=== PATIENT | female | born 1960 | race Two or more races ===

== ENCOUNTER 2018-02-22 14:53 | Inpatient (IN) | payer BC, OTHER ==
[~2018-02-22] VITALS: Ht 157.5 cm; Wt 59.2 kg
[2018-02-22] MEDS ORDERED: MORPHINE SULFATE 4 MG/ML SYR/VIAL IV ONE ×2 (16:00→18:45)
[2018-02-22] MEDS ORDERED: ONDANSETRON HCL 4 MG/2 ML VIAL IV ONE (16:00)
[2018-02-22 16:36] LABS: Anion Gap 10 (5-15); Carbon Dioxide 26 mmol/L (21-32); Chloride 94 mmol/L (98-107); GFR African American 154 mL/min; GFR Non-African American 127 mL/min; Glucose 397 mg/dL (74-106); Potassium 3.6 mmol/L (3.5-5.1); Sodium 130 mmol/L (136-145)
[2018-02-22 16:37] LABS: Magnesium 2.1 mg/dL (1.6-2.6)
[2018-02-22 17:19] LABS: Urine Bacteria NONE SEEN /hpf (None Seen); Urine Blood Negative /uL (Negative); Urine WBC 5 /hpf (0 - 5)
[2018-02-22 17:33] LABS: White Blood Cell 13.8 10^3/uL (4.4-10.8)
[2018-02-22 17:34] LABS: Lymphocytes % (auto) 12.6 % (10.0-50.0); Monocytes % (auto) 3.6 % (0.0-12.0); Neutrophils % (auto) 82.2 % (37.0-80.0)
[2018-02-22 17:35] LABS: Basophils # (auto) 0.1 uL; Basophils % (auto) 0.8 % (0.0-2.0); Eosinophils # (auto) 0.1 uL; Eosinophils % (auto) 0.8 % (0.0-7.0); Hematocrit 43.4 % (36.0-46.0); Hemoglobin 14.7 g/dL (12.2-16.2); Lymphocytes # (auto) 1.7 uL; Mean Corpuscular Hemoglobin 31.3 pg (28.0-32.0); Mean Corpuscular Hgb Conc. 33.9 g/dL (32.0-36.0); Mean Corpuscular Volume 92.2 fL (80.0-100.0); Monocytes # (auto) 0.5 uL; Neutrophils # (auto) 11.2 uL; Red Blood Cells 4.77 10^6/uL (4.0-5.20)
[2018-02-22 17:36] LABS: Platelet Count (auto) 334 10^3/uL (140-450); Red Cell Distribution Width 13.8 % (11.8-14.3)
[2018-02-22 19:08] LABS: Alkaline Phosphatase 120 U/L (45-117)
[2018-02-22 19:09] LABS: Alanine Aminotransferase 46 U/L (13-56)
[2018-02-22 19:10] LABS: Bilirubin, Total 2.2 mg/dL (0.2-1.0); Calcium 7.6 mg/dL (8.5-10.1)
[2018-02-22 19:11] LABS: Amylase 591 U/L (25-115); BUN/Creatinine Ratio 18.9; Blood Urea Nitrogen 10 mg/dL (7-18); Lipase 7391 U/L (73-393); Total Protein 7.9 g/dL (6.4-8.2)
[2018-02-22] MEDS ORDERED: SODIUM CHLORIDE 0.9% 1,000 ML IV ONE (19:30)
[2018-02-22] MEDS ORDERED: DEXTROSE (50%) 50ML SYRG IV PRN (19:30)
[2018-02-22] MEDS ORDERED: TEMAZEPAM 15 MG CAP PO PRN (19:45)
[2018-02-22] MEDS ORDERED: MORPHINE SULFATE 4 MG/ML SYR/VIAL IV PRN ×2 (19:45)
[2018-02-22] MEDS ORDERED: ACETAMINOPHEN 325 MG TAB PO PRN (19:45)
[2018-02-22] MEDS ORDERED: ONDANSETRON HCL 4 MG/2 ML VIAL IV PRN (19:45)
[2018-02-22] MEDS ORDERED: HYDROcodone-ACET 5/325MG TAB PO PRN (19:45)
[2018-02-22] MEDS ORDERED: cefTRIAXone 1GM/50ML D5W 50 ML IV ONE (19:45)
[2018-02-22] MEDS ORDERED: NITROGLYCERIN 0.4 MG SL TAB SL PRN (19:45)
[2018-02-22] MEDS ORDERED: METF-929 PO (19:49)
[2018-02-22] MEDS ORDERED: FENO35TA2 PO (19:52)
[2018-02-22] MEDS ORDERED: ATOR40TA52 PO (19:52)
[2018-02-22] MEDS ORDERED: INSU1INJ13 SC (19:52)
[2018-02-22] MEDS ORDERED: CANA300T OR (19:52)
[2018-02-22] MEDS ORDERED: INSLISPI SC (19:52)
[2018-02-22] MEDS: SODIUM CHLORIDE 0.9% 1,000 ML IV SCH (21:06)
[2018-02-22] MEDS: metroNIDAZOLE 500MG/100ML 100 ML IV SCH (21:08)
[2018-02-22] MEDS: FAMOTIDINE 20 MG TAB PO SCH (21:08)
[2018-02-22] MEDS: ATORVASTATIN 20 MG TAB PO SCH (21:09)
[2018-02-22] MEDS: ACCU-CHEK COMFORT CURVE STRIP VI SCH (21:15)
[2018-02-22] MEDS: InsuLIN REG 1unit/0.01ml Soln (100units/ml) SC SCH (21:19)
[2018-02-22] MEDS ORDERED: INSULIN LISPRO (HUMAN) 100 UNITS/ML ML SC SCH (22:00)
[2018-02-22 22:10] VITALS: BP 155/86
[2018-02-22 22:20] VITALS: BP 155/86
[2018-02-23 05:20] VITALS: BP 121/62
[2018-02-23 05:40] LABS: Potassium 3.6 mmol/L (3.5-5.1)
[2018-02-23 05:50] LABS: Bilirubin, Total 1.5 mg/dL (0.2-1.0)
[2018-02-23 05:51] LABS: Lipase 3425 U/L (73-393)
[2018-02-23] MEDS: metroNIDAZOLE 500MG/100ML 100 ML IV SCH ×3 (05:51→22:16)
[2018-02-23 06:28] LABS: Basophils # (auto) 0.1 uL; Basophils % (auto) 1.2 % (0.0-2.0); Eosinophils # (auto) 0.1 uL; Eosinophils % (auto) 1.2 % (0.0-7.0); Hematocrit 39.4 % (36.0-46.0); Hemoglobin 13.3 g/dL (12.2-16.2); Lymphocytes % (auto) 21.8 % (10.0-50.0); Mean Corpuscular Hemoglobin 31.4 pg (28.0-32.0); Mean Corpuscular Hgb Conc. 33.9 g/dL (32.0-36.0); Mean Corpuscular Volume 92.6 fL (80.0-100.0); Monocytes # (auto) 0.4 uL; Monocytes % (auto) 4.1 % (0.0-12.0); Neutrophils # (auto) 6.5 uL; Neutrophils % (auto) 71.7 % (37.0-80.0); Nucleated Red Blood Cells % 1.6 %; Red Blood Cells 4.25 10^6/uL (4.0-5.20); Red Cell Distribution Width 14.2 % (11.8-14.3)
[2018-02-23 06:29] LABS: Platelet Count (auto) 300 10^3/uL (140-450)
[2018-02-23] MEDS: ACCU-CHEK COMFORT CURVE STRIP VI SCH ×4 (06:42→22:29)
[2018-02-23] MEDS: InsuLIN REG 1unit/0.01ml Soln (100units/ml) SC SCH ×4 (06:43→22:32)
[2018-02-23] MEDS: SODIUM CHLORIDE 0.9% 1,000 ML IV SCH ×3 (06:50→21:46)
[2018-02-23 07:05] LABS: BUN/Creatinine Ratio 28.1
[2018-02-23 07:06] LABS: Albumin 2.7 g/dL (3.4-5.0); Total Protein 6.8 g/dL (6.4-8.2)
[2018-02-23 07:08] LABS: Amylase 400 U/L (25-115)
[2018-02-23 09:00] VITALS: BP 100/59
[2018-02-23] MEDS: cefTRIAXone 1GM/50ML D5W 50 ML IV SCH (09:30)
[2018-02-23] MEDS: MULTIPLE VITAMIN TAB PO SCH (09:30)
[2018-02-23] MEDS: FAMOTIDINE 20 MG TAB PO SCH ×2 (09:30→22:16)
[2018-02-23] MEDS ORDERED: INSULIN LISPRO (HUMAN) 100 UNITS/ML ML SC SCH (11:30)
[2018-02-23] MEDS: INSULIN LISPRO (HUMAN) 100 UNITS/ML ML SC SCH ×3 (11:30→21:45)
[2018-02-23] MEDS: Glucerna Carbsteady SHAKE Vanilla 8oz PO SCH ×2 (12:00→18:24)
[2018-02-23 13:00] VITALS: BP 103/61
[2018-02-23 17:00] VITALS: BP 106/56
[2018-02-23 22:00] VITALS: BP 105/56
[2018-02-23] MEDS: ATORVASTATIN 20 MG TAB PO SCH (22:16)
[2018-02-24 05:00] VITALS: BP 101/58
[2018-02-24] MEDS: SODIUM CHLORIDE 0.9% 1,000 ML IV SCH ×3 (05:04→21:46)
[2018-02-24 05:13] LABS: Basophils # (auto) 0 uL; Basophils % (auto) 0.7 % (0.0-2.0); Eosinophils # (auto) 0.1 uL; Eosinophils % (auto) 1.6 % (0.0-7.0); Hematocrit 37.4 % (36.0-46.0); Hemoglobin 13.5 g/dL (12.2-16.2); Lymphocytes # (auto) 1.8 uL; Lymphocytes % (auto) 25.1 % (10.0-50.0); Mean Corpuscular Hemoglobin 33.2 pg (28.0-32.0); Mean Corpuscular Hgb Conc. 36.1 g/dL (32.0-36.0); Monocytes # (auto) 0.3 uL; Monocytes % (auto) 4.2 % (0.0-12.0); Neutrophils % (auto) 68.4 % (37.0-80.0); Nucleated Red Blood Cells % 0.2 %; Platelet Count (auto) 253 10^3/uL (140-450); Red Blood Cells 4.06 10^6/uL (4.0-5.20); Red Cell Distribution Width 14.2 % (11.8-14.3); White Blood Cell 7.3 10^3/uL (4.4-10.8)
[2018-02-24 05:24] LABS: Calcium 6.8 mg/dL (8.5-10.1); Potassium 3.8 mmol/L (3.5-5.1)
[2018-02-24 05:32] LABS: BUN/Creatinine Ratio 12.5
[2018-02-24 05:35] LABS: Amylase 1214 U/L (25-115); Lipase 13084 U/L (73-393)
[2018-02-24] MEDS: metroNIDAZOLE 500MG/100ML 100 ML IV SCH ×3 (06:17→21:46)
[2018-02-24] MEDS: ACCU-CHEK COMFORT CURVE STRIP VI SCH ×4 (06:19→21:46)
[2018-02-24] MEDS: InsuLIN REG 1unit/0.01ml Soln (100units/ml) SC SCH ×4 (06:19→22:03)
[2018-02-24] MEDS: INSULIN LISPRO (HUMAN) 100 UNITS/ML ML SC SCH ×2 (06:23→11:30)
[2018-02-24] MEDS: Glucerna Carbsteady SHAKE Vanilla 8oz PO SCH ×3 (08:00→18:00)
[2018-02-24 09:30] VITALS: BP 104/60
[2018-02-24] MEDS: cefTRIAXone 1GM/50ML D5W 50 ML IV SCH (09:43)
[2018-02-24] MEDS: FAMOTIDINE 20 MG TAB PO SCH ×2 (09:44→21:39)
[2018-02-24] MEDS: MULTIPLE VITAMIN TAB PO SCH (09:45)
[2018-02-24 13:38] VITALS: BP 102/67
[2018-02-24 17:02] VITALS: BP 127/81
[2018-02-24] MEDS: ATORVASTATIN 20 MG TAB PO SCH (21:46)
[2018-02-24 21:56] VITALS: BP 127/77
[2018-02-25 04:39] VITALS: BP 120/71
[2018-02-25] MEDS: metroNIDAZOLE 500MG/100ML 100 ML IV SCH ×3 (05:34→21:38)
[2018-02-25] MEDS: SODIUM CHLORIDE 0.9% 1,000 ML IV SCH ×3 (05:34→21:39)
[2018-02-25 06:29] LABS: Amylase 849 U/L (25-115); Lipase 6039 U/L (73-393)
[2018-02-25] MEDS: ACCU-CHEK COMFORT CURVE STRIP VI SCH ×4 (06:58→21:38)
[2018-02-25] MEDS: InsuLIN REG 1unit/0.01ml Soln (100units/ml) SC SCH ×4 (06:59→21:51)
[2018-02-25 08:00] VITALS: BP 114/70
[2018-02-25] MEDS: Glucerna Carbsteady SHAKE Vanilla 8oz PO SCH ×3 (08:00→16:41)
[2018-02-25] MEDS: FAMOTIDINE 20 MG TAB PO SCH ×2 (09:13→21:38)
[2018-02-25] MEDS: cefTRIAXone 1GM/50ML D5W 50 ML IV SCH (09:13)
[2018-02-25] MEDS: MULTIPLE VITAMIN TAB PO SCH (09:14)
[2018-02-25 12:00] VITALS: BP 127/69
[2018-02-25 16:00] VITALS: BP 140/70
[2018-02-25] MEDS: ATORVASTATIN 20 MG TAB PO SCH (21:38)
[2018-02-25 21:49] VITALS: BP 147/79
[2018-02-26 04:44] VITALS: BP 122/68
[2018-02-26] MEDS: metroNIDAZOLE 500MG/100ML 100 ML IV SCH ×2 (06:10→14:00)
[2018-02-26] MEDS: ACCU-CHEK COMFORT CURVE STRIP VI SCH ×2 (06:11→11:36)
[2018-02-26] MEDS: SODIUM CHLORIDE 0.9% 1,000 ML IV SCH (06:11)
[2018-02-26 06:15] LABS: Amylase 192 U/L (25-115); Lipase 1300 U/L (73-393)
[2018-02-26] MEDS: InsuLIN REG 1unit/0.01ml Soln (100units/ml) SC SCH ×2 (06:20→11:30)
[2018-02-26] MEDS: Glucerna Carbsteady SHAKE Vanilla 8oz PO SCH ×2 (08:00→12:00)
[2018-02-26 08:30] VITALS: BP 124/69
[2018-02-26 09:01] VITALS: BP 118/65
[2018-02-26] MEDS: FAMOTIDINE 20 MG TAB PO SCH (09:38)
[2018-02-26] MEDS: MULTIPLE VITAMIN TAB PO SCH (09:38)
[2018-02-26] MEDS: cefTRIAXone 1GM/50ML D5W 50 ML IV SCH (09:38)
[2018-02-26 13:05] VITALS: BP 127/76
[2018-02-26 13:19] VITALS: BP 127/76
== END 2018-02-26 15:00 | disposition home or self-care (01) | DRG 439 ==
LOC: ER 14:56 → TELE 14:57 → TELE-WESTW 22:10
PROVIDERS: ADMIT Internal Medicine; ATTEND Family Medicine
DX: K85.90 Acute pancreatitis without necrosis or infection, unspecified (principal); E87.1 Hypo-osmolality and hyponatremia; E44.0 Moderate protein-calorie malnutrition; E86.0 Dehydration; E78.5 Hyperlipidemia, unspecified; E78.00 Pure hypercholesterolemia, unspecified; K76.0 Fatty (change of) liver, not elsewhere classified; E11.65 Type 2 diabetes mellitus with hyperglycemia; Z68.23 Body mass index [BMI] 23.0-23.9, adult; Z83.3 Family history of diabetes mellitus; Z90.49 Acquired absence of other specified parts of digestive tract
CPT/HCPCS: 36415; 74176; 80048; 80053; 81001; 82150; 82962; 83036; 83690; 83735; 84484; 85025; 87040; 87045; 87086; 87493; 87899; 93005; 94761; 96361; 96365; 96375; J0696; J1815; J2405; J3490

== ENCOUNTER 2018-10-23 22:02 | Inpatient (IN) | payer BC ==
[~2018-10-23] VITALS: Ht 157.5 cm; Wt 61.4 kg
[~2018-10-23 22:02] MED LIST: ATOR40TA52 PO; CANA300T OR; FENO35TA2 PO; INSLISPI SC; INSU1INJ13 SC; METF-929 PO
[2018-10-23 23:50] LABS: Basophils # (auto) 0.1 uL; Lymphocytes # (auto) 2.4 uL
[2018-10-23 23:52] LABS: Basophils % (auto) 0.6 % (0.0-2.0); Eosinophils # (auto) 0.1 uL; Eosinophils % (auto) 1.1 % (0.0-7.0); Lymphocytes % (auto) 17.4 % (10.0-50.0); Monocytes # (auto) 0.5 uL; Monocytes % (auto) 3.8 % (0.0-12.0); Neutrophils # (auto) 10.6 uL; Neutrophils % (auto) 77.1 % (37.0-80.0); Nucleated Red Blood Cells % 0.2 %; Platelet Count (auto) 368 10^3/uL (140-450); White Blood Cell 13.8 10^3/uL (4.4-10.8)
[2018-10-24] LABS: Potassium 3.5 mmol/L (3.5-5.1)
[2018-10-24 00:09] LABS: Hematocrit 46.9 % (36.0-46.0); Hemoglobin 15.9 g/dL (12.2-16.2); Mean Corpuscular Hgb Conc. 33.9 g/dL (32.0-36.0); Red Blood Cells 5.08 10^6/uL (4.0-5.20)
[2018-10-24 00:10] LABS: Mean Corpuscular Hemoglobin 31.3 pg (28.0-32.0); Mean Corpuscular Volume 92.3 fL (80.0-100.0); Red Cell Distribution Width 13.3 % (11.8-14.3)
[2018-10-24 01:09] LABS: Albumin 4.3 g/dL (3.4-5.0); BUN/Creatinine Ratio 19.2; Calcium 8.5 mg/dL (8.5-10.1)
[2018-10-24 01:14] LABS: Bilirubin, Total 1.1 mg/dL (0.2-1.0); Total Protein 7.2 g/dL (6.4-8.2)
[2018-10-24] MEDS ORDERED: ONDANSETRON HCL 4 MG/2 ML VIAL IV ONE (04:00)
[2018-10-24] MEDS ORDERED: MORPHINE SULFATE 4 MG/ML SYR/VIAL IV ONE (04:45)
[2018-10-24] MEDS ORDERED: SODIUM CHLORIDE 0.9% 1,000 ML IV ONE ×2 (04:45→18:00)
[2018-10-24 05:46] LABS: Urine Bacteria FEW /hpf (None Seen); Urine Blood Negative /uL (Negative); Urine Specific Gravity 1.031 (1.001-1.035); Urine WBC 3 /hpf (0 - 5)
[2018-10-24] MEDS ORDERED: SODIUM CHLORIDE 0.9% 500 ML IVB ONE (06:39)
[2018-10-24] MEDS ORDERED: DEXTROSE (50%) 50ML SYRG IV PRN ×3 (07:30→17:45)
[2018-10-24] MEDS ORDERED: SODIUM CHLORIDE 0.9% 1,000 ML IV SCH ×2 (07:30→11:15)
[2018-10-24] MEDS: ONDANSETRON HCL 4 MG/2 ML VIAL IV PRN (07:58)
[2018-10-24] MEDS: MORPHINE SULFATE 4 MG/ML SYR/VIAL IV PRN ×3 (07:58→22:10)
[2018-10-24 08:31] LABS: Potassium 3.8 mmol/L (3.5-5.1)
[2018-10-24 09:53] LABS: Calcium 5.5 mg/dL (8.5-10.1)
[2018-10-24] MEDS: FAMOTIDINE (10MG/ML) 2ML VL IV SCH ×2 (10:09→22:04)
[2018-10-24] MEDS ORDERED: LACTATED RINGER'S 1,000 ML IV ONE (11:30)
[2018-10-24] MEDS ORDERED: CALCIUM GLUC 4.65meq/50ml D5AE 50 ML IV ONE ×2 (11:30→18:00)
[2018-10-24] MEDS ORDERED: ACCU-CHEK COMFORT CURVE STRIP VI SCH ×2 (12:00→17:00)
[2018-10-24] MEDS ORDERED: InsuLIN REG 1unit/0.01ml Soln (100units/ml) SC SCH ×2 (12:00→17:00)
[2018-10-24 13:36] LABS: Protein, Urine 202.3 mg/dL (0.0-11.9)
[2018-10-24 15:30] VITALS: BP 123/75
[2018-10-24 16:28] VITALS: BP 123/75
[2018-10-24 17:11] LABS: Potassium 5.1 mmol/L (3.5-5.1)
[2018-10-24 17:37] LABS: BUN/Creatinine Ratio 9.6
[2018-10-24 17:40] LABS: Calcium 5.8 mg/dL (8.5-10.1)
[2018-10-24 17:41] LABS: Albumin 2.6 g/dL (3.4-5.0); Bilirubin, Total 1.4 mg/dL (0.2-1.0); Total Protein 7.5 g/dL (6.4-8.2)
[2018-10-24] MEDS: LACTATED RINGER'S 1,000 ML IV SCH ×2 (17:45→20:16)
--- NOTE | 2018-10-24 17:47 | NUR ---
Called Dr. Nicole regarding critical calcium level of 5.8 and blood glucose (serum) 454. Will wait for return call.
--- NOTE | 2018-10-24 17:56 | NUR ---
Orders Received from Dr. Nicole. Repeat Calcium 4.65 mEq IVPB and give 1 L NS bolus IV per Dr. Nicole
[2018-10-24] MEDS: InsuLIN REG 1unit/0.01ml Soln (100units/ml) SC SCH ×2 (18:06→23:53)
[2018-10-24] MEDS: ACCU-CHEK COMFORT CURVE STRIP VI SCH ×2 (18:06→23:53)
[2018-10-24 22:00] VITALS: BP 110/65
[2018-10-24] MEDS ORDERED: INSULIN LANTUS (GLARGINE) 1 /0.01ml (100units/ml) SC ONE ×2 (22:00)
[2018-10-25] MEDS: MORPHINE SULFATE 4 MG/ML SYR/VIAL IV PRN ×4 (02:08→20:51)
[2018-10-25] MEDS: LACTATED RINGER'S 1,000 ML IV SCH ×3 (03:41→20:17)
[2018-10-25 05:30] VITALS: BP 113/60
[2018-10-25] MEDS: ACCU-CHEK COMFORT CURVE STRIP VI SCH ×4 (06:08→23:12)
[2018-10-25] MEDS: InsuLIN REG 1unit/0.01ml Soln (100units/ml) SC SCH ×4 (06:12→23:12)
--- NOTE | 2018-10-25 07:35 | NUR ---
RECEIVED REPORT AND ASSUME CARE OF PT. A/OX4. DENIED S/S ACUTE DISTRESS. UPDATE PT WITH POC. BED AT LOWEST POSITION. CALL LIGHT AND BELONGINGS WITHIN REACH. WILL CONT TO MONITOR.
[2018-10-25 08:40] LABS: Basophils # (auto) 0 uL; Basophils % (auto) 0.7 % (0.0-2.0); Eosinophils # (auto) 0.2 uL; Eosinophils % (auto) 2.6 % (0.0-7.0); Hematocrit 43.4 % (36.0-46.0); Hemoglobin 15.4 g/dL (12.2-16.2); Lymphocytes # (auto) 1.6 uL; Lymphocytes % (auto) 27.4 % (10.0-50.0); Mean Corpuscular Hemoglobin 32.5 pg (28.0-32.0); Mean Corpuscular Hgb Conc. 35.4 g/dL (32.0-36.0); Mean Corpuscular Volume 91.7 fL (80.0-100.0); Monocytes # (auto) 0.2 uL; Monocytes % (auto) 3.8 % (0.0-12.0); Neutrophils # (auto) 3.9 uL; Neutrophils % (auto) 65.5 % (37.0-80.0); Nucleated Red Blood Cells % 0.1 %; Platelet Count (auto) 322 10^3/uL (140-450); Red Blood Cells 4.73 10^6/uL (4.0-5.20); Red Cell Distribution Width 13.7 % (11.8-14.3)
[2018-10-25 09:19] LABS: Calcium 6.1 mg/dL (8.5-10.1); Potassium 4.4 mmol/L (3.5-5.1)
[2018-10-25 09:28] LABS: Bilirubin, Total 1.5 mg/dL (0.2-1.0); Phosphorus 1.1 mg/dL (2.5-4.90)
[2018-10-25 09:49] LABS: BUN/Creatinine Ratio 15.8; Total Protein 6.5 g/dL (6.4-8.2)
[2018-10-25 09:50] LABS: Albumin 2.1 g/dL (3.4-5.0)
[2018-10-25] MEDS ORDERED: POTASSIUM PHOSPHATE 26.4 MEQ in SODIUM CHL 0.9% 100 ML IV ONE (10:00)
[2018-10-25] MEDS ORDERED: SODIUM PHOSPHATES 40 MEQ in D5W 5% 250 ML IV ONE (10:15)
[2018-10-25 10:26] VITALS: BP 107/65
[2018-10-25] MEDS: GEMFIBROZIL 600 MG TAB PO SCH ×2 (10:28→20:46)
[2018-10-25] MEDS: FAMOTIDINE (10MG/ML) 2ML VL IV SCH ×2 (10:28→20:46)
[2018-10-25] MEDS: ONDANSETRON HCL 4 MG/2 ML VIAL IV PRN (10:30)
[2018-10-25 12:00] VITALS: BP 101/62
[2018-10-25 17:00] VITALS: BP 109/61
--- NOTE | 2018-10-25 19:28 | NUR ---
PT RESTING IN BED. NO S/S ACUTE DISTRESS NOTED. ENDORSED CARE TO NIGHT NURSE.
[2018-10-25 22:00] VITALS: BP 120/60
[2018-10-25] MEDS: INSULIN LANTUS (GLARGINE) 1 /0.01ml (100units/ml) SC SCH (23:11)
[2018-10-26] MEDS: LACTATED RINGER'S 1,000 ML IV SCH (03:30)
[2018-10-26] MEDS: MORPHINE SULFATE 4 MG/ML SYR/VIAL IV PRN ×3 (04:47→21:30)
[2018-10-26 05:00] VITALS: BP 117/66
[2018-10-26] MEDS: ACCU-CHEK COMFORT CURVE STRIP VI SCH ×3 (05:00→18:18)
[2018-10-26] MEDS: InsuLIN REG 1unit/0.01ml Soln (100units/ml) SC SCH ×3 (05:01→18:18)
[2018-10-26 07:16] LABS: Potassium 3.2 mmol/L (3.5-5.1)
[2018-10-26 07:24] LABS: BUN/Creatinine Ratio 14.1; Bilirubin, Total 1.5 mg/dL (0.2-1.0); Magnesium 2.1 mg/dL (1.6-2.6); Phosphorus 1.1 mg/dL (2.5-4.90); Total Protein 6.1 g/dL (6.4-8.2)
--- NOTE | 2018-10-26 07:30 | NUR ---
OPENING SHIFT NOTE: Received report from NOC RN, Janie. Assumed care of patient. Patient resting in bed, states pain is a tolerable level at this time. Bed in lowest position, rails x2 up and call light within reach. Updated on plan of care. Will continue to monitor.
[2018-10-26 08:06] LABS: Immunoglobulin G, Serum 847 mg/dL (700-1600)
[2018-10-26 09:00] VITALS: BP 100/54
[2018-10-26] MEDS: FAMOTIDINE (10MG/ML) 2ML VL IV SCH (09:17)
[2018-10-26] MEDS: GEMFIBROZIL 600 MG TAB PO SCH ×2 (09:18→21:29)
--- NOTE | 2018-10-26 10:40 | NUR ---
MD: Dr Alexander to see patient. Orders received.
[2018-10-26] MEDS ORDERED: POTASSIUM EFFERVESENT TAB 25 MEQ PO ONE (11:00)
[2018-10-26] MEDS ORDERED: POTASSIUM PHOSPHATE 44 MEQ in D5W 5% 250 ML IV ONE (11:00)
[2018-10-26] MEDS ORDERED: ERGOCALCIFEROL 50,000 UNIT(1.25MG) CAP PO SCH (11:15)
--- NOTE | 2018-10-26 11:15 | NUR ---
MD: Dr Nicole to see patient. Orders received.
[2018-10-26] MEDS: POTASSIUM CHLORIDE IV SCH ×2 (12:00→19:05)
[2018-10-26] MEDS: SOD CHLO IV SCH ×2 (12:00→19:05)
[2018-10-26] MEDS: D5 IV SCH ×2 (12:00→19:05)
[2018-10-26 13:07] VITALS: BP 109/60
[2018-10-26 17:18] VITALS: BP 111/50
--- NOTE | 2018-10-26 19:13 | NUR ---
Opening Shift Note Assumed care of patient, awake and alert. Family at bed side. No S/S of distress/SOB or pain. Instructed on POC and to call for assist PRN, will continue to monitor for changes Q1hr and PRN.
--- NOTE | 2018-10-26 19:14 | NUR ---
CLOSING SHIFT NOTE: Report given to NOC Fozia LZU. Endorsed care of patient.
[2018-10-26 20:00] VITALS: BP 111/66
[2018-10-26] MEDS: INSULIN LANTUS (GLARGINE) 1 /0.01ml (100units/ml) SC SCH (21:30)
[2018-10-26 22:19] VITALS: BP 111/66
[2018-10-27] MEDS: D5 IV SCH ×3 (03:10→19:20)
[2018-10-27] MEDS: SOD CHLO IV SCH ×3 (03:10→19:20)
[2018-10-27] MEDS: POTASSIUM CHLORIDE IV SCH ×3 (03:10→19:20)
[2018-10-27 05:00] VITALS: BP 114/58
--- NOTE | 2018-10-27 05:30 | NUR ---
ROUNDS PATIENT RESTING IN BED WITH EYES CLOSED WITH EVEN AND UNLABORED RESPIRATIONS HOLDING AT 18BPM AND SATURATING 98% ON ROOM AIR. PATIENTS CALL LIGHT WITH IN REACH, NO SIGNS OR SYMPTOMS OF PAIN OR DISTRESS.
[2018-10-27] MEDS: ACCU-CHEK COMFORT CURVE STRIP VI SCH ×4 (05:44→17:32)
[2018-10-27] MEDS: InsuLIN REG 1unit/0.01ml Soln (100units/ml) SC SCH ×4 (05:44→17:32)
[2018-10-27 07:29] LABS: Albumin 2.1 g/dL (3.4-5.0); Calcium 8.2 mg/dL (8.5-10.1); Potassium 4.3 mmol/L (3.5-5.1)
--- NOTE | 2018-10-27 07:30 | NUR ---
OPENING SHIFT NOTE: Received report from NOC RNFozia. Assumed care of patient. Patient resting in bed, states pain is a tolerable level at this time. Bed in lowest position, rails x2 up and call light within reach. Updated on plan of care. Will continue to monitor.
[2018-10-27 07:38] LABS: BUN/Creatinine Ratio 8.8; Bilirubin, Total 1.4 mg/dL (0.2-1.0); Phosphorus 1.3 mg/dL (2.5-4.90); Total Protein 6.5 g/dL (6.4-8.2)
[2018-10-27 09:00] VITALS: BP 122/68
[2018-10-27] MEDS: MORPHINE SULFATE 4 MG/ML SYR/VIAL IV PRN ×2 (09:19→21:35)
[2018-10-27] MEDS: GEMFIBROZIL 600 MG TAB PO SCH ×2 (09:19→21:35)
[2018-10-27] MEDS: ENOXAPARIN SOD 40 MG/0.4 ML SYRINGE SC SCH (09:20)
[2018-10-27] MEDS ORDERED: FAMOTIDINE 20 MG TAB PO SCH (10:00)
--- NOTE | 2018-10-27 10:45 | NUR ---
MD: Dr Gudino to see patient.
--- NOTE | 2018-10-27 12:38 | NUR ---
Nutrition Assessment Notes please see attached link for complete assessment Est. Needs BW [id number] kcal (23-25kcal/kgBW), 60-78 gms pro (1.0-1.3 gms/kgBW r/t severe hypoalb). Will continue to monitor pertinent labs and reassess nutrient need prn. Addendum: 10/27/18 at [address] Amended: Links added.
[2018-10-27 13:00] VITALS: BP 130/68
[2018-10-27] MEDS ORDERED: SODIUM PHOSPHATES 40 MEQ in D5W 5% 250 ML IV ONE (13:45)
[2018-10-27 17:00] VITALS: BP 124/70
--- NOTE | 2018-10-27 19:22 | NUR ---
Opening Shift Note Assumed care of patient, awake and alert. No S/S of distress/SOB or pain. Instructed on POC and to call for assist PRN, will continue to monitor for changes Q1hr and PRN.
--- NOTE | 2018-10-27 19:38 | NUR ---
CLOSING SHIFT NOTE: Report given to NOC Fozia LUZ. Endorsed care of patient.
[2018-10-27 20:00] VITALS: BP 145/80
[2018-10-27] MEDS: INSULIN LANTUS (GLARGINE) 1 /0.01ml (100units/ml) SC SCH (21:38)
[2018-10-27 22:00] VITALS: BP 145/80
[2018-10-28] MEDS: ACCU-CHEK COMFORT CURVE STRIP VI SCH ×4 (00:08→18:05)
[2018-10-28] MEDS: D5 IV SCH (03:25)
[2018-10-28] MEDS: POTASSIUM CHLORIDE IV SCH (03:25)
[2018-10-28] MEDS: SOD CHLO IV SCH (03:25)
[2018-10-28] MEDS: MORPHINE SULFATE 4 MG/ML SYR/VIAL IV PRN (03:57)
[2018-10-28] MEDS ORDERED: D5W/ SOD CHL 0.9%/KCL 20MEQ 1,000 ML IV ONE (04:06)
[2018-10-28 05:00] VITALS: BP 133/83
[2018-10-28] MEDS: InsuLIN REG 1unit/0.01ml Soln (100units/ml) SC SCH ×4 (06:00→18:05)
[2018-10-28 07:37] LABS: Amylase 47 U/L (25-115); Lipase 572 U/L (73-393)
[2018-10-28 08:37] VITALS: BP 122/74
[2018-10-28 09:36] LABS: Albumin 2.2 g/dL (3.4-5.0); BUN/Creatinine Ratio 6.3; Calcium 8.6 mg/dL (8.5-10.1)
[2018-10-28 09:38] LABS: Bilirubin, Total 1.4 mg/dL (0.2-1.0); Total Protein 6.7 g/dL (6.4-8.2)
[2018-10-28] MEDS ORDERED: DICYCLOMINE HCL 10 MG CAP PO SCH ×2 (10:00→14:00)
[2018-10-28] MEDS: GEMFIBROZIL 600 MG TAB PO SCH ×2 (10:52→21:15)
[2018-10-28] MEDS: ENOXAPARIN SOD 40 MG/0.4 ML SYRINGE SC SCH (10:53)
[2018-10-28] MEDS: SODIUM CHLORIDE 0.9% 1,000 ML IV SCH (10:53)
[2018-10-28] MEDS: FAMOTIDINE 20 MG TAB PO SCH ×2 (10:53→21:14)
[2018-10-28 12:54] VITALS: BP 129/71
[2018-10-28] MEDS ORDERED: DICYCLOMINE HCL 10 MG CAP PO PRN (14:45)
[2018-10-28 16:42] VITALS: BP 120/73
--- NOTE | 2018-10-28 19:30 | NUR ---
OPENING NOTE REPORT RECEIVED FROM DAY SHIFT RN PATIENT IS AMBULATING HALLWAY WITH HER DAUGHTER. INTRODUCED SELF TO PATIENT AND FAMILY. PT ENCOURAGED TO KEEP AMBULATING. PT DENIES ANY PAIN AT THIS TIME. WILL CONTINUE TO MONITOR.
[2018-10-28] MEDS: INSULIN LANTUS (GLARGINE) 1 /0.01ml (100units/ml) SC SCH (21:16)
[2018-10-28 22:00] VITALS: BP 123/71
[2018-10-29] MEDS: SODIUM CHLORIDE 0.9% 1,000 ML IV SCH (00:07)
[2018-10-29] MEDS: ACCU-CHEK COMFORT CURVE STRIP VI SCH ×2 (00:14→06:02)
[2018-10-29] MEDS: InsuLIN REG 1unit/0.01ml Soln (100units/ml) SC SCH ×2 (00:14→06:02)
[2018-10-29 05:00] VITALS: BP 126/68
--- NOTE | 2018-10-29 07:10 | NUR ---
CLOSING NOTE PATIENT RESTING IN BED.NO S/SOF DISTRESS. DENIED PAIN DURING NIGHT. CARE ENDORSED TO DAY SHIFT RN.
[2018-10-29 07:15] LABS: Albumin 2.3 g/dL (3.4-5.0); Bilirubin, Direct 0.6 mg/dL (0-0.2)
[2018-10-29 07:17] LABS: Bilirubin, Total 1.3 mg/dL (0.2-1.0); Total Protein 7.1 g/dL (6.4-8.2)
[2018-10-29 08:51] VITALS: BP 122/72
[2018-10-29] MEDS: ENOXAPARIN SOD 40 MG/0.4 ML SYRINGE SC SCH (10:00)
[2018-10-29] MEDS: GEMFIBROZIL 600 MG TAB PO SCH (10:54)
[2018-10-29] MEDS: FAMOTIDINE 20 MG TAB PO SCH (10:55)
[2018-10-29 12:54] VITALS: BP 126/70
[2018-10-29 14:15] VITALS: BP 126/70
--- NOTE | 2018-10-29 14:40 | NUR ---
Discharge note Discharge instructions given as ordered. Encourage to follow up with PMD as instructed. All questions and concerns addressed. Patient verbalized understanding. IV removed with catheter intact, pressure dressing applied. Patient taken to vehicle via wheelchair with all personal belongings, accompanied by staff and family member. No distress noted at time of departure.
--- NOTE | 2018-10-31 09:55 | NUR ---
assessment Patient discharged prior to being assessed. Addendum: 10/31/18 at 0955 by Rachelle ARANGO Amended: Links added.
== END 2018-10-29 14:40 | disposition home or self-care (01) | DRG 438 ==
LOC: ER 22:08 → OVERFLOW 10-24 07:21 → CENTRAL 10-24 15:53
PROVIDERS: ADMIT Nurse Practitioner; ATTEND Hospitalist
DX: K85.90 Acute pancreatitis without necrosis or infection, unspecified (principal); E11.10 Type 2 diabetes mellitus with ketoacidosis without coma; N17.0 Acute kidney failure with tubular necrosis; E87.1 Hypo-osmolality and hyponatremia; K86.1 Other chronic pancreatitis; E11.21 Type 2 diabetes mellitus with diabetic nephropathy; E11.22 Type 2 diabetes mellitus with diabetic chronic kidney disease; E78.00 Pure hypercholesterolemia, unspecified; E78.1 Pure hyperglyceridemia; E83.51 Hypocalcemia; E86.0 Dehydration; E87.8 Other disorders of electrolyte and fluid balance, not elsewhere classified; K76.0 Fatty (change of) liver, not elsewhere classified; N18.9 Chronic kidney disease, unspecified; Z79.4 Long term (current) use of insulin; Z90.49 Acquired absence of other specified parts of digestive tract
CPT/HCPCS: 36415; 74176; 74181; 80048; 80053; 80061; 80076; 81001; 82010; 82150; 82306; 82310; 82570; 82784; 82962; 83036; 83690; 83735; 84100; 84156; 84300; 85025; 86334; 86335; 93005; 94761; 96361; 96365; 96372; 96375; G0378; J0610; J1815; J2405; J3490; J7042; J7060

== ENCOUNTER 2018-12-17 16:34 | Inpatient (IN) | payer BC ==
[~2018-12-17] VITALS: Ht 157.5 cm; Wt 52.2 kg
[2018-12-17] MEDS ORDERED: ASPirin 81 mg TAB PO ONE (17:45)
[2018-12-17 17:48] LABS: Urine Bacteria FEW /hpf (None Seen); Urine Blood Negative /uL (Negative); Urine Mucus FEW (None Seen); Urine Specific Gravity 1.026 (1.001-1.035); Urine WBC 4 /hpf (0 - 5)
[2018-12-17 20:32] LABS: Basophils # (auto) 0.2 uL; Basophils % (auto) 1.2 % (0.0-2.0); Eosinophils # (auto) 0.1 uL; Eosinophils % (auto) 0.7 % (0.0-7.0); Hematocrit 42.1 % (36.0-46.0); Hemoglobin 14.5 g/dL (12.2-16.2); Lymphocytes # (auto) 1.8 uL; Lymphocytes % (auto) 14.1 % (10.0-50.0); Mean Corpuscular Hemoglobin 31.3 pg (28.0-32.0); Mean Corpuscular Hgb Conc. 34.3 g/dL (32.0-36.0); Mean Corpuscular Volume 91.3 fL (80.0-100.0); Monocytes # (auto) 0.4 uL; Monocytes % (auto) 3.2 % (0.0-12.0); Neutrophils # (auto) 10.1 uL; Neutrophils % (auto) 80.8 % (37.0-80.0); Platelet Count (auto) 363 10^3/uL (140-450); Red Blood Cells 4.61 10^6/uL (4.0-5.20); Red Cell Distribution Width 13.3 % (11.8-14.3); White Blood Cell 12.5 10^3/uL (4.4-10.8)
[2018-12-17 20:52] LABS: Albumin 3.8 g/dL (3.4-5.0); BUN/Creatinine Ratio 25.3; Calcium 8.9 mg/dL (8.5-10.1); Potassium 4.3 mmol/L (3.5-5.1)
[2018-12-17 21:00] LABS: Bilirubin, Total 0.9 mg/dL (0.2-1.0); Total Protein 8.8 g/dL (6.4-8.2)
[2018-12-18] MEDS ORDERED: ACETAMINOPHEN 500 MG TAB PO PRN (01:15)
[2018-12-18] MEDS ORDERED: TEMAZEPAM 15 MG CAP PO PRN (01:15)
[2018-12-18] MEDS ORDERED: HYDROcodone-ACET 5/325MG TAB PO PRN (01:15)
[2018-12-18] MEDS ORDERED: DOCUSATE SOD 100 MG CAP PO PRN (01:15)
[2018-12-18] MEDS ORDERED: ENOXAPARIN SOD 60 MG/0.6 ML SYRINGE SC ONE (01:15)
[2018-12-18] MEDS ORDERED: ONDANSETRON HCL 4 MG/2 ML VIAL IV PRN (01:15)
[2018-12-18] MEDS ORDERED: DEXTROSE (50%) 50ML SYRG IV PRN (01:15)
[2018-12-18] MEDS ORDERED: IOHEXOL 350 MG/ML 100ML IJ ONE (01:16)
--- NOTE | 2018-12-18 03:00 | NUR ---
Telemetry admit from ER ALESSANDROZAN admitted to Telemetry unit after SBAR received. Patient oriented to Kristie Oglesby, primary RN, unit, room, bed, and unit policies regarding patient care and visiting hours. Patient now on continuous telemetry monitoring, tele box 41# and telemetry reading on arrival to unit is NSR 82. PT ENCOURAGED to call if they need something. All questions and concerns addressed, patient verbalized understanding. Note:
[2018-12-18 03:05] LABS: Amylase 369 U/L (25-115)
[2018-12-18 03:13] LABS: Lipase 4259 U/L (73-393)
[2018-12-18 03:53] VITALS: BP 120/72
[2018-12-18 05:29] VITALS: BP 120/72
[2018-12-18] MEDS: InsuLIN REG 1unit/0.01ml Soln (100units/ml) SC SCH ×4 (06:43→21:28)
[2018-12-18] MEDS: ACCU-CHEK COMFORT CURVE STRIP VI SCH ×4 (06:44→21:12)
--- NOTE | 2018-12-18 06:48 | NUR ---
PT RESTING CALMLY WITH NO C/O PAIN AT THIS TIME.CALL LIGHT IN REACH.WILL CONTINUE TO MONITOR.
--- NOTE | 2018-12-18 08:00 | NUR ---
Opening Shift Note Assumed care of patient, awake and alert. No S/S of distress/SOB or pain. Instructed on POC and to call for assist PRN, will continue to monitor for changes Q1hr and PRN.
[2018-12-18 08:03] LABS: Basophils # (auto) 0.1 uL; Basophils % (auto) 1.4 % (0.0-2.0); Eosinophils # (auto) 0.3 uL; Eosinophils % (auto) 3.4 % (0.0-7.0); Hemoglobin 13.7 g/dL (12.2-16.2); Lymphocytes # (auto) 2.2 uL; Lymphocytes % (auto) 27.3 % (10.0-50.0); Mean Corpuscular Hemoglobin 31.4 pg (28.0-32.0); Mean Corpuscular Hgb Conc. 34.3 g/dL (32.0-36.0); Mean Corpuscular Volume 91.6 fL (80.0-100.0); Monocytes # (auto) 0.4 uL; Neutrophils # (auto) 5.1 uL; Neutrophils % (auto) 62.9 % (37.0-80.0); Nucleated Red Blood Cells % 0.1 %; Platelet Count (auto) 317 10^3/uL (140-450); Red Blood Cells 4.36 10^6/uL (4.0-5.20); Red Cell Distribution Width 13.3 % (11.8-14.3); White Blood Cell 8.2 10^3/uL (4.4-10.8)
[2018-12-18 08:21] LABS: Anion Gap 8 (5-15); Blood Urea Nitrogen 16 mg/dL (7-18); Calcium 9.2 mg/dL (8.5-10.1); Carbon Dioxide 27 mmol/L (21-32); Chloride 98 mmol/L (98-107); Cholesterol 263 mg/dL (< 200); Glucose 285 mg/dL (74-106); Potassium 3.9 mmol/L (3.5-5.1); Sodium 133 mmol/L (136-145)
[2018-12-18 08:30] LABS: BUN/Creatinine Ratio 21.6; GFR African American 104 mL/min; GFR Non-African American 86 mL/min; HDL Cholesterol 24 mg/dL (40-59); Triglycerides 1504 mg/dL (< 150)
[2018-12-18 09:00] VITALS: BP 103/60
[2018-12-18] MEDS ORDERED: cefTRIAXone 1GM/50ML D5W 50 ML IV SCH (09:00)
--- NOTE | 2018-12-18 09:30 | NUR ---
GI consult Dr. Gudino at bedside. Patient is advised. Orders received.
--- NOTE | 2018-12-18 09:40 | NUR ---
Cardiology consult Dr. Glass at bedside, patient is advised. Orders received. For Cardiolite Multiple tomorrow.
[2018-12-18] MEDS: LACTATED RINGER'S 1,000 ML IV SCH ×2 (10:04→23:18)
[2018-12-18] MEDS: ASPirin-EC 81 mg tab PO SCH (10:04)
[2018-12-18] MEDS: LOSARTAN POTASSIUM 25 MG TAB PO SCH (10:04)
--- NOTE | 2018-12-18 11:50 | NUR ---
Hospitalist rounds Dr. Salvatore Paulino at bedside, patient is advised. Orders received. Kept patient on NPO.
[2018-12-18] MEDS ORDERED: SODIUM CHLORIDE 0.9% 2,000 ML IV ONE (12:00)
[2018-12-18 13:00] VITALS: BP 100/59
[2018-12-18 18:10] VITALS: BP 83/51
[2018-12-18] MEDS: GEMFIBROZIL 600 MG TAB PO SCH (21:11)
[2018-12-18 22:00] VITALS: BP 95/58
[2018-12-18] MEDS ORDERED: ATORVASTATIN 20 MG TAB PO SCH (22:00)
[2018-12-19] VITALS (7 sets, daily range): BP systolic 89–136; BP diastolic 48–70
[2018-12-19] MEDS: LACTATED RINGER'S 1,000 ML IV SCH ×2 (05:45→17:24)
[2018-12-19] MEDS: InsuLIN REG 1unit/0.01ml Soln (100units/ml) SC SCH ×4 (06:23→21:51)
[2018-12-19] MEDS: ACCU-CHEK COMFORT CURVE STRIP VI SCH ×4 (06:23→21:51)
[2018-12-19] MEDS ORDERED: ADENOSINE 44 MG in GIVE UN-DILUTED 0 ML IV STA (08:10)
--- NOTE | 2018-12-19 08:45 | NUR ---
Patient taken to Nuclear Medicine via wheelchair for Stress test.
[2018-12-19] MEDS: ASPirin-EC 81 mg tab PO SCH (10:08)
[2018-12-19] MEDS: GEMFIBROZIL 600 MG TAB PO SCH ×2 (10:09→21:51)
[2018-12-19] MEDS: LOSARTAN POTASSIUM 25 MG TAB PO SCH (10:10)
--- NOTE | 2018-12-19 11:15 | NUR ---
Patient back to her room S/P Stress test. Waiting for results.
--- NOTE | 2018-12-19 18:20 | NUR ---
Received a call from Dr. Glass, patient is for [facility] tomorrow. Orders received. Will continue care.
--- NOTE | 2018-12-19 19:25 | NUR ---
Opening Shift Note Received report from May LUZ. Assumed care of patient, awake and alert. No S/S of distress/SOB or pain. Instructed on POC and to call for assist PRN, will continue to monitor for changes Q1hr and PRN.
[2018-12-19] MEDS ORDERED: SODIUM CHLORIDE 0.9% 1,000 ML IV SCH (20:00)
[2018-12-20 05:20] VITALS: BP 98/50
[2018-12-20] MEDS: InsuLIN REG 1unit/0.01ml Soln (100units/ml) SC SCH ×3 (06:38→17:00)
[2018-12-20] MEDS: ACCU-CHEK COMFORT CURVE STRIP VI SCH ×3 (06:38→17:00)
--- NOTE | 2018-12-20 07:05 | NUR ---
Care endorsed to Mabel LUZ.
[2018-12-20 07:07] LABS: Basophils # (auto) 0.1 uL; Basophils % (auto) 1.7 % (0.0-2.0); Eosinophils # (auto) 0.3 uL; Eosinophils % (auto) 4.9 % (0.0-7.0); Hematocrit 38.9 % (36.0-46.0); Hemoglobin 13.1 g/dL (12.2-16.2); Lymphocytes # (auto) 2.5 uL; Lymphocytes % (auto) 46.5 % (10.0-50.0); Mean Corpuscular Hemoglobin 31.7 pg (28.0-32.0); Mean Corpuscular Hgb Conc. 33.8 g/dL (32.0-36.0); Mean Corpuscular Volume 93.8 fL (80.0-100.0); Monocytes # (auto) 0.3 uL; Monocytes % (auto) 6.5 % (0.0-12.0); Neutrophils # (auto) 2.1 uL; Neutrophils % (auto) 40.4 % (37.0-80.0); Nucleated Red Blood Cells % 0.1 %; Platelet Count (auto) 285 10^3/uL (140-450); Red Blood Cells 4.15 10^6/uL (4.0-5.20); Red Cell Distribution Width 13.4 % (11.8-14.3); White Blood Cell 5.3 10^3/uL (4.4-10.8)
--- NOTE | 2018-12-20 07:30 | NUR ---
OPENING NOTE The patient is received alert and oriented times four with no SOB or s/s of distress at this time. The patient is resting in bed in the lowest position with call light within reach, will continue to monitor and POC.
[2018-12-20 07:37] LABS: Calcium 9.1 mg/dL (8.5-10.1); Magnesium 2.1 mg/dL (1.6-2.6); Potassium 3.8 mmol/L (3.5-5.1)
[2018-12-20 07:39] LABS: BUN/Creatinine Ratio 15.9
--- NOTE | 2018-12-20 07:50 | NUR ---
TRANSFERRED TO GREENHOUSE MANAGER Dermatology Teacher calls and is updated on the patient's status. The patient states that she has not talked to the conveyor technician about her pending Left Heart Cath. The patient states that she is agreeable to be transferred to Dermatology Teacher and talk with the conveyor technician there. The patient is transferred to Dermatology Teacher with no distress noted during transfer.
[2018-12-20 09:00] VITALS: BP 117/61
[2018-12-20] MEDS ORDERED: fentaNYL CITRATE 100 MCG/2 ML VL ONE (09:41)
[2018-12-20] MEDS ORDERED: SODIUM CHL 0.9% 0 ML ONE (09:41)
[2018-12-20] MEDS ORDERED: MIDAZOLAM HCL 1MG/1ML-2 ML VIAL ONE (09:41)
[2018-12-20] MEDS ORDERED: VERAPAMIL 2.5MG/ML INJ 2ML VIAL IV ONE (09:41)
[2018-12-20] MEDS ORDERED: ANGIOMAX 250 MG VIAL IV ONE (09:41)
--- NOTE | 2018-12-20 10:02 | NUR ---
PATIENT RECEIVED FROM TYPEWRITER OPERATOR AUTOMATIC The patient is received from Technical Training Instructor, alert and oriented times four with no SOB or s/s of distress at this time. The patient had no surgical intervention after being transferred to Technical Training Instructor. Will continue to monitor and POC.
[2018-12-20] MEDS: LOSARTAN POTASSIUM 25 MG TAB PO SCH (10:34)
[2018-12-20] MEDS: GEMFIBROZIL 600 MG TAB PO SCH (10:34)
[2018-12-20] MEDS: ASPirin-EC 81 mg tab PO SCH (10:34)
--- NOTE | 2018-12-20 12:30 | NUR ---
Rounds Patient awake and alert. No S/S of distress/SOB or pain. Will continue to monitor changes q1hr and PRN.
[2018-12-20 13:00] VITALS: BP 110/54
[2018-12-20] MEDS ORDERED: METO25TA5 PO (16:14)
[2018-12-20] MEDS ORDERED: ASP81EC PO (16:14)
[2018-12-20] MEDS ORDERED: CLOP75TA28 PO (16:14)
[2018-12-20] MEDS ORDERED: GEMF600T7 PO (16:14)
--- NOTE | 2018-12-20 18:15 | NUR ---
PATIENT DISCHARGED Discharge instructions given as ordered. Encourage to follow up with PMD as instructed. All questions and concerns addressed. Patient verbalized understanding. Medication reconciliation form completed and copy given to patient. IV removed with catheter intact, pressure dressing applied. Telemetry unit returned to [facility]. The patient signs an AMA form for her home health safety evaluation. The patient's home health will be established and they will call the patient to assess her readiness to accept the home health. Patient ambulates off unit with all personal belongings, accompanied by staff and family member. No distress noted at time of departure.
[2018-12-21] MEDS ORDERED: CLOPIDOGREL BISULFATE 75 MG TAB PO SCH (10:00)
--- NOTE | 2018-12-21 16:18 | NUR ---
Per consult, patient received home health orders. Referral faxed, [facility] agreed to accept this case. Obtained auth ( [id number] per Shakira). Placed a follow up call to Simona at [facility] and was advised that start of care will be within 24-48 hours upon discharge. Addendum: 12/21/18 at 1620 by CLAIRE DEBBIE Amended: Links added. Addendum: 12/21/18 at 1814 by CLAIRE LEWIS Received a call from Simona at [facility] and was advised that when she ran eligibility, the auth given from [facility] should have come from [employer]. She said she placed a call to [facility]-spoke with Maxine (Coordinator) and August advised she would redirect the referral to their out patient high risk case manager for follow up on the [employer] auth as [facility] is not contracted with [employer].
== END 2018-12-20 18:15 | disposition home health service (06) | DRG 280 ==
LOC: ER 16:34 → TELE 16:35 → TELE-EAST 12-18 03:45
PROVIDERS: ADMIT Nurse Practitioner Family; ATTEND Internal Medicine
DX: I21.4 Non-ST elevation (NSTEMI) myocardial infarction (principal); K85.90 Acute pancreatitis without necrosis or infection, unspecified; N39.0 Urinary tract infection, site not specified; K86.1 Other chronic pancreatitis; I10 Essential (primary) hypertension; E86.0 Dehydration; E78.1 Pure hyperglyceridemia; E11.9 Type 2 diabetes mellitus without complications; Z79.4 Long term (current) use of insulin; Z82.49 Family history of ischemic heart disease and other diseases of the circulatory system; Z90.49 Acquired absence of other specified parts of digestive tract
CPT/HCPCS: 36415; 71045; 71275; 74176; 78452; 80048; 80053; 80061; 81001; 82150; 82962; 83036; 83690; 83735; 83880; 84484; 85025; 85379; 86850; 86900; 86901; 93017; 93306; 93970; 96372; G0378; J0153; J0696; J1815; J2250